=== PATIENT | female | born 1970 | race African-American/Black ===

== ENCOUNTER 2016-12-19 11:50 | Outpatient (CLI) | payer OTHER ==
--- NOTE | 2016-12-19 15:06 | RAD ---
TWO VIEWS LEFT HIP: Date: 12-19-16 Comparison: None. History: Left hip pain. FINDINGS: There is no acute fracture or evidence of dislocation seen. There is mild degenerative change at the pubic symphysis. There is minimal superior joint space narrowing involving the left hip. IMPRESSION: No acute findings. POS: [facility]
== END 2016-12-19 11:51 | disposition home or self-care (01) ==
LOC: NAV RAD 11:50
PROVIDERS: ATTEND Family Medicine
DX: Z02.71 Encounter for disability determination (principal)

== ENCOUNTER 2017-08-10 11:43 | Emergency (ER) | payer OTHER, SELFPAY ==
[2017-08-10] MEDS ORDERED: Lidocaine 1% 20 ML MDV ONE (12:03)
== END 2017-08-10 12:29 | disposition home or self-care (01) ==
LOC: NAV ERS 11:43
DX: L02.416 Cutaneous abscess of left lower limb (principal); I10 Essential (primary) hypertension; E03.9 Hypothyroidism, unspecified; Z85.43 Personal history of malignant neoplasm of ovary; Z79.82 Long term (current) use of aspirin; Z79.899 Other long term (current) drug therapy
CPT/HCPCS: 10060; J2001

== ENCOUNTER 2017-08-10 19:00 | Emergency (ER) | payer OTHER, SELFPAY | END 2017-08-10 19:18 | disposition home or self-care (01) | LOC: NAV ERS 19:00 | DX: S29.012A Strain of muscle and tendon of back wall of thorax, initial encounter (principal); S50.811A Abrasion of right forearm, initial encounter; E03.9 Hypothyroidism, unspecified; I10 Essential (primary) hypertension; Z85.43 Personal history of malignant neoplasm of ovary; Z79.82 Long term (current) use of aspirin; Z79.899 Other long term (current) drug therapy; V43.62XA Car passenger injured in collision with other type car in traffic accident, initial encounter; W22.12XA Striking against or struck by front passenger side automobile airbag, initial encounter | CPT/HCPCS: 99283 ==

== ENCOUNTER 2017-08-12 11:31 | Emergency (ER) | payer OTHER | END 2017-08-12 13:15 | disposition home or self-care (01) | LOC: NAV ERS 11:31 | DX: Z48.817 Encounter for surgical aftercare following surgery on the skin and subcutaneous tissue (principal); E03.9 Hypothyroidism, unspecified; I10 Essential (primary) hypertension; Z79.899 Other long term (current) drug therapy; Z79.82 Long term (current) use of aspirin | CPT/HCPCS: 99282 ==

== ENCOUNTER 2025-05-09 14:51 | Emergency (ER) | payer MEDICAID, OTHER | END 2025-05-09 15:57 | disposition home or self-care (01) | LOC: NAV ERS 14:51 | DX: K12.2 Cellulitis and abscess of mouth (principal); I10 Essential (primary) hypertension | CPT/HCPCS: 99283 ==